=== PATIENT | female | born 1955 | race Caucasian/White ===

== ENCOUNTER → 2016-07-15 | Outpatient (CLI) | payer SELFPAY ==
[~2016-07-15] MED LIST: CEPACOL SORE T1 EAC1 PO; CLARITIN10 MG PO; DESYREL DPS150 MG PO; HABITROL DPS14 MG TD; LEVAQUIN750 MG PO; MAALOX DPS30 ML PO; MILK OF MAGNESI10 ML PO; MILLIPRED5 MG PO; MOBIC7.5 MG PO; MUCINEX600 MG PO; NEOSPORIN OIN14.2 GM TP; ONE DAILY COMP1 EACH PO; PEPTO BISMOL PO; PROVENTIL HFA6.7 GM IH; RISPERDAL2 MG PO; SYNTHROID DPS0.05 MG PO; TENEX1 MG PO; TESSALON PERLE100 M1 PO; TINACTIN TP; TYLENOL325 MG PO; VITAMIN B-1100 M1 PO; ZOLOFT50 MG PO; [UNRECOGNIZED DRUG - OTHER] TP
== END | disposition home or self-care (01) ==
LOC: RAD.S 12:15
DX: R09.02 Hypoxemia (principal)